=== PATIENT | female | born 1940 | race Caucasian/White ===

== ENCOUNTER → 2016-11-07 | Outpatient (CLI) | payer OTHER, MEDICARE ==
[~2016-11-07] VITALS: Ht 162.6 cm; Wt 58.1 kg
[~2016-11-07] MED LIST: LATANOPROST 0.2.5 ML OPHTHALMIC; XALATAN2.5 ML OPHTHALMIC
--- NOTE | ~2016-11-07 | CATHLAB ---
[facility] [address] [place] [address] INVASIVE PROCEDURE REPORT Name: SABINA STAPLES Room #: REG CL [facility]#: [id number] Admission: 11/07/16 Attend Phys: Jeremy Giang, Discharge: Date of : 44 Date of Service: 11/07/16915 Report #: [id number] THIS REPORT FOR: //name// CC: Elijah Giang INDICATIONS: Shortness of breath, abnormal stress study, and history of syncope. PROCEDURE: Left heart coronary angiography and FFR of the LAD. DESCRIPTION OF PROCEDURE: The potential benefits and risks of the procedure were discussed at length with the patient who understood. Full written and informed consent was obtained. The patient was brought into the catheterization suite where her right groin was prepped and draped in a sterile fashion. She was sedated with intravenous Versed, 1% Xylocaine was used as local anesthetic. A 6-Niuean sheath was placed in the right femoral artery by the modified Seldinger technique. Left heart catheterization was performed with a 6-Niuean angled pigtail catheter. A single plain ventriculogram was performed in the SMITH view, pullback gradients were measured across the aortic valve. Selective coronary angiography was performed with a 6-Niuean left and right 4 cm Scot coronary catheter. Attention was turned to the mid LAD, which was assessed by FFR. A heparin bolus was administered. A JL4 launcher guide catheter was placed over a wire with its tip at the ostium of the left main and FFR wire was placed down the LAD, pre-adenosine FFR was 0.98, with adenosine infusion, the FFR fell to 0.84, above the threshold to suggest significance to the stenosis. All catheters were removed. A hand injection was performed to the right groin sheath with placement of a Mynx device upon removal of the sheath. The patient remained in excellent condition at the conclusion of the procedure with good right groin hemostasis and intact distal pulses. RESULTS: LEFT HEART HEMODYNAMICS: 1. Left ventricular systolic pressure of 140. 2. Left ventricular end diastolic pressure of 16. 3. Aortic valve, no gradient was present on pullback across the aortic valve, central aortic pressure of 140/70. ANGIOGRAPHY: LEFT VENTRICULOGRAM: Ventriculography demonstrated normal global and regional left ventricular systolic function, mitral regurgitation was absent. As an incidental finding there was moderate atherosclerotic changes of the mid abdominal aorta. SELECTIVE CORONARY ANGIOGRAPHY: 1. LEFT MAIN: Left main was normal. [facility] [address] [place] [address] INVASIVE PROCEDURE REPORT Name: SABINA STAPLES Room #: REG [facility]#: [id number] Admission: 11/07/16 Attend Phys: Jeremy Giang, Discharge: Date of : 44 Date of Service: 11/07/16 0916 Report #: [id number] 2. Left anterior descending: Left anterior descending was a large vessel that extended to the apex. The mid LAD up to the first septal perforating branch exhibited two 50-60% sequential stenoses. These flanked a single moderate size diagonal branch. These sequential stenoses were not hemodynamically significant by FFR assessment with a post-adenosine FFR was 0.84, remaining portion of the LAD was normal. 3. The circumflex was large, but nondominant. Circumflex was comprised of a single marginal branch, which was angiographically normal. 4. THE RIGHT CORONARY: The right coronary was dominant and normal throughout its course. SUMMARY: 1. Normal global and regional left ventricular systolic function, mitral regurgitation was absent. 2. Normal left main. 3. Moderate sequential 50-60% mid LAD stenoses not flow limiting by FFR assessment 0.84 post-adenosine, significant being less than 0.80. 4. Normal circumflex. 5. Dominant normal right coronary. Based on this study, aggressive pharmacologic therapy and risk factor modification is recommended. <ELECTRONICALLY SIGNED> By: Jeremy Giang MD, FACC 11/10/16 0815 0916 1135 Jeremy Giang MD, FACC /nt
[2016-11-07 07:14] VITALS: BP 145/66
== END | disposition home or self-care (01) ==
LOC: CATH 06:31
DX: I25.10 Atherosclerotic heart disease of native coronary artery without angina pectoris (principal); H40.9 Unspecified glaucoma; Z98.42 Cataract extraction status, left eye; Z98.41 Cataract extraction status, right eye; Z96.1 Presence of intraocular lens; Z98.890 Other specified postprocedural states

== ENCOUNTER → 2020-02-20 | Outpatient (CLI) | payer OTHER, MEDICARE | LOC: SJCVC 13:16 | PROVIDERS: ATTEND Internal Medicine | DX: R94.31 Abnormal electrocardiogram [ECG] [EKG] (principal); I25.10 Atherosclerotic heart disease of native coronary artery without angina pectoris; R55 Syncope and collapse; E78.5 Hyperlipidemia, unspecified; I10 Essential (primary) hypertension ==

== ENCOUNTER → 2021-02-22 | Outpatient (CLI) | payer OTHER, MEDICARE | LOC: SJCVC 12:53 | PROVIDERS: ATTEND Internal Medicine | DX: R94.31 Abnormal electrocardiogram [ECG] [EKG] (principal); R00.1 Bradycardia, unspecified; I25.10 Atherosclerotic heart disease of native coronary artery without angina pectoris; R55 Syncope and collapse; I47.1 Supraventricular tachycardia; E78.5 Hyperlipidemia, unspecified; I10 Essential (primary) hypertension; M86.8X7 Other osteomyelitis, ankle and foot; H40.9 Unspecified glaucoma; Z79.82 Long term (current) use of aspirin; Z79.899 Other long term (current) drug therapy; Z72.89 Other problems related to lifestyle; Z88.5 Allergy status to narcotic agent ==

== ENCOUNTER → 2021-08-27 | Outpatient (CLI) | payer OTHER, MEDICARE | LOC: RAD 14:43 | PROVIDERS: ATTEND Internal Medicine | DX: I51.7 Cardiomegaly (principal); M40.14 Other secondary kyphosis, thoracic region; Z88.8 Allergy status to other drugs, medicaments and biological substances ==

== ENCOUNTER → 2021-09-03 | Outpatient (CLI) | payer OTHER, MEDICARE ==
--- NOTE | ~2021-09-03 | PFR/MVV ---
[facility] [place] [address] [address] PULMONARY FUNCTION MVV/REPORT Name: SABINA STAPLESGLENROY Room #: REG [facility]#: [id number] Admission: 09/03/21 Attend Phys: Jeremy Giang MD, [facility] Discharge: Date of : 44 Report #: [id number] THIS REPORT FOR: //name// >> SPIROMETRY: (BTPS) Height: 64 in cm Weight: 145 lbs kg Exam Date: 09/03/21 PRE-RX POST-RX PRED BEST %PRED BEST %PRED %CHG FVC LITERS . 2.61 . 2.28 . 87 . 2.21 . 85 . -3 FEV1 LITERS . 1.79 . 1.78 . 99 . 1.78 . 100 . 0 FEV1/FVC % . 70 . 78 . 111 . 81 . 115 . 4 [id number]% L/Sec . 2.02 . 1.83 . 90 . 2.02 . 100 . 11 PEF L/SEC . 5.25 . 4.23 . 80 . 4.07 . 78 . -4 FEF50/FIF50 UNITLESS . 2.20 . 3.44 . 156 . 2.90 . 132 . -16 MVV L/Min . . . f 1/Min . . . >> LUNG VOLUMES: (BTPS) PRE-RX POST-RX PRED AVG %PRED AVG %PRED %CHG VC Liters . 2.61 . 2.65 . 101 . . . TLC Liters . 4.74 . 4.17 . 88 . . . RV Liters . 2.01 . 1.52 . 76 . . . RV/TLC % . 43 . 37 . 86 . . . FRC PL Liters . 2.78 . 2.06 . 74 . . . FRC N2 Liters . 2.78 . . . . . ERV Liters . 0.89 . 0.60 . 68 . . . IC Liters . 1.79 . 2.11 . 118 . . . >> DIFFUSION: DLCO ml/Min/mmHg . 17.7 . 9.0 . 51 . . . DL Kat ml/Min/mmHg . 17.7 . 9.0 . 51 . . . DLCO/VA ml/Min/mmHg . 3.30 . 3.56 . 108 . . . VA Liters . . 2.53 . . . . COMMENTS: COMMENTS: >> RESISTANCE: [facility] [address] [place] [address] PULMONARY FUNCTION MVV/REPORT Name: SABINA STAPLES Room #: REG [facility].#: [id number] Admission: 09/03/21 Attend Phys: Jeremy Giang MD, [facility] Discharge: Date of : 44 Report #: [id number] PRE-RX PRED AVG %PRED Raw Total cmH20/L/Sec . . 2.52 . Raw Insp cmH20/L/Sec . . 2.15 . Raw Exp cmH20/L/Sec . . 2.06 . Raw cmH20/L/Sec . 1.37 . 2.06 . 150 Gaw L/Sec/cmH20 . 0.668 . 0.485 . 73 sRaw cmH20 Sec . 3.82 . 6.23 . 163 sGaw l/cmH20 Sec . 0.262 . 0.160 . 61 Vtq Liters . . 3.02 . # = OUTSIDE 95% CONFIDENCE INTERVAL CALIBRATION: PRED: 3.00 ACTUAL: EXP 3.01 INSP 3.02 [place] [id number] [place] [address] [id number] >> INTERPRETATION/IMPRESSION: DATE OF SERVICE: 09/03/2021 SPIROMETRY: FEV1 is 1.78 L (99% predicted), FVC is 2.28 liters (87% predicted), FEV1/FVC ratio is 78%. There is no significant response to bronchodilator therapy. LUNG VOLUMES: Total lung capacity is 4.17 liters (88% predicted), vital capacity is 2.65 liters (101% predicted). Diffusing capacity is 51%. IMPRESSION: Pulmonary function studies are essentially normal. There is a slight decrease in total lung capacity consistent with very mild restrictive airflow defect. There is no significant response to bronchodilator therapy. Diffusing capacity is moderately decreased. By: Jd Lugo MD /nt
== END ==
LOC: PUL 12:01
PROVIDERS: ATTEND Internal Medicine
DX: Z20.822 Contact with and (suspected) exposure to COVID-19 (principal)

== ENCOUNTER → 2021-09-10 | Outpatient (CLI) | payer OTHER, MEDICARE | LOC: SJCVCIMAG 08:43 | PROVIDERS: ATTEND Internal Medicine | DX: I08.8 Other rheumatic multiple valve diseases (principal); I25.10 Atherosclerotic heart disease of native coronary artery without angina pectoris; I10 Essential (primary) hypertension; R06.00 Dyspnea, unspecified ==